=== PATIENT | female | born 1935 | race Caucasian/White ===

== ENCOUNTER → 2017-01-22 | Outpatient (CLI) | payer MEDICARE, BC ==
--- NOTE | 2017-01-22 17:31 | BD ---
EXAMINATION TYPE: MG DEXA axial skeleton. DATE OF EXAM: 01/22/2017 COMPARISON: NONE CLINICAL HISTORY: Postmenopausal female. Height: 5FT 3 IN Weight: 125 FRAX RISK QUESTIONS: Alcohol (3 or more units per day): NO Family History (Parent hip fracture): NO Glucocorticoids (More than 3mos): NO (Ex: prednisone, prednisolone, methylprednisolone, dexamethasone, and hydrocortisone). History of Fracture in Adulthood: NO Secondary Osteoporosis: 1. Type 1 Diabetes: NO 2. Hyperthyroidism: NO 3. Menopause before 45: YES 4. Malnutrition: NO 5. Chronic liver disease: NO Rheumatoid Arthritis: NO Current Tobacco Use: NO RISK FACTORS HISTORY OF: Active: YES Postmenopausal woman: TOTAL HYST AGE 38 Take estrogen and/or progesterone medications: TOOK PREMARIN FOR 30 YEARS MEDICATIONS: Prednisone or other steroids: How Long: Thyroid Medications: Which medication: How Long: Osteoporosis Medications: Which medication: How Long: Additional Medications: PRAVASTAIN, OMEPRAZOLE, ASPIRIN,BISOPROLOL-HYDROCHLORTHIAZIE Additional History: EXAM MEASUREMENTS: Bone mineral densitometry was performed using the Schedulicity System. Bone mineral density as measured about the Lumbar spine is: ----- L1-L4(G/cm2): 1.159 T Score Values are as follows: ----- L2: -1.6 ----- L3: 0.0 ----- L4: 1.6 ----- L1-L4: -0.2 UNSURE WHERE PREV WAS DONE AT Bone mineral density about the R hip (g/cm2): 0.856 Bone mineral density about the L hip (g/cm2): 0.865 T Score values are as follows: -----R Neck: -1.3 -----L Neck: -1.2 -----R Total: -0.6 -----L Total: -0.5 IMPRESSION: OSTEOPENIA. NOTE: T-SCORE=SD OF THE YOUNG ADULT MEAN.
--- NOTE | 2017-01-24 10:40 | MM ---
Reason for exam: screening (asymptomatic). Last mammogram was performed 13 years and 8 months ago. History: Patient is postmenopausal. Family history of breast cancer in 2 sisters. Physical Findings: A clinical breast exam by your physician is recommended on an annual basis and results should be correlated with mammographic findings. MG 3D Screening Mammo W/Cad Bilateral CC and MLO view(s) were taken. Prior study comparison: May 12, 2003, left breast diagnostic mammogram. The breast tissue is heterogeneously dense. This may lower the sensitivity of mammography. No suspicious abnormality. No significant changes when compared with prior studies. ASSESSMENT: Negative, BI-RAD 1 RECOMMENDATION: Routine screening mammogram of both breasts in 1 year.
== END | disposition home or self-care (01) ==
LOC: RADMAMWWP 14:54
PROVIDERS: ATTEND Family Medicine
DX: Z12.31 Encounter for screening mammogram for malignant neoplasm of breast (principal); M85.88 Other specified disorders of bone density and structure, other site; R26.9 Unspecified abnormalities of gait and mobility; I10 Essential (primary) hypertension; E78.5 Hyperlipidemia, unspecified; M85.9 Disorder of bone density and structure, unspecified; E55.9 Vitamin D deficiency, unspecified; E53.8 Deficiency of other specified B group vitamins; Z78.0 Asymptomatic menopausal state
CPT/HCPCS: 77080; 77063; G0202

== ENCOUNTER → 2017-01-23 | Outpatient (CLI) | payer MEDICARE, BC ==
[2017-01-23 11:27] LABS: ALT 27 U/L (9-52); AST 22 U/L (14-36); Alkaline Phosphatase 76 U/L (38-126); Anion Gap 9 mmol/L; Blood Urea Nitrogen 7 mg/dL (7-17); Calcium 10.1 mg/dL (8.4-10.2); Carbon Dioxide 28 mmol/L (22-30); Chloride 99 mmol/L (98-107); Cholesterol 231 mg/dL (<200); Glucose 100 mg/dL (74-99); HDL Cholesterol 106 mg/dL (40-60); Non-African American GFR(MDRD) >60 (>60 ml/min/1.73 sqM); Potassium 4.3 mmol/L (3.5-5.1); Sodium 136 mmol/L (137-145); Total Bilirubin 0.6 mg/dL (0.2-1.3)
[2017-01-23 11:47] LABS: Basophils % (A) 1 %; CH 31.2; CHCM 34.8; Eosinophils # (A) 0.1 k/uL (0-0.7); Eosinophils % (A) 1 %; HCT 41.2 % (34.0-46.0); HDW 2.62; HGB 13.7 gm/dL (11.4-16.0); Luc # (Auto) 0.13; Luc % (Auto) 3; Lymphocytes # (A) 1.6 k/uL (1.0-4.8); Lymphocytes % (A) 31 %; MCHC 33.2 g/dL (31.0-37.0); MCV 90.2 fL (80.0-100.0); Mean Platelet Volume 7.5; Monocytes # (A) 0.3 k/uL (0-1.0); Monocytes % (A) 5 %; Neutrophils # (A) 3.1 k/uL (1.3-7.7); Neutrophils % (A) 59 %; RBC 4.57 m/uL (3.80-5.40); RDW 13.7 % (11.5-15.5); WBC 5.2 k/uL (3.8-10.6); WBC (Perox) 5.46
[2017-01-23 12:10] LABS: Vitamin B12 388 pg/mL
[2017-01-23 12:11] LABS: Hemoglobin A1C 5.8 % (4.2-6.1)
== END | disposition home or self-care (01) ==
LOC: LABWHC1 09:40
PROVIDERS: ATTEND Family Medicine
DX: I10 Essential (primary) hypertension (principal); E78.5 Hyperlipidemia, unspecified; M85.9 Disorder of bone density and structure, unspecified; E55.9 Vitamin D deficiency, unspecified; R79.9 Abnormal finding of blood chemistry, unspecified; E53.8 Deficiency of other specified B group vitamins; R26.9 Unspecified abnormalities of gait and mobility
CPT/HCPCS: 36415; 80053; 80061; 82306; 82607; 83036; 84443; 85025

== ENCOUNTER → 2017-11-19 | Outpatient (CLI) | payer MEDICARE, BC ==
--- NOTE | 2017-11-19 11:44 | US ---
EXAMINATION TYPE: US thyroid st tissue head/neck DATE OF EXAM: 11/19/2017 COMPARISON: NONE CLINICAL HISTORY: E04.1 Thyroid Nodule. GLAND SIZE: Right Lobe: 4.2 x 1.7 x 1.4 cm Overall Parenchyma: homogenous Left Lobe: 3.4 x 1.4 x 1.5 cm Overall Parenchyma: homogeneous Isthmus Thickness: 0.1 cm NODULES RIGHT: # of nodules measured on right: 1 1. 1.4 x 1.1 x 1.1 cm anechoic mixed nodule at the mid pole with well-defined margins. This nodule is wider than tall and shows intranodular vascularity. No prior LEFT: # of nodules measured on left: 0 ISTHMUS: # of nodules measured in the isthmus: 0 Bilateral neck scanned, no evidence of lymphadenopathy. IMPRESSION: Complex cystic structure right lobe thyroid
== END | disposition home or self-care (01) ==
LOC: RADUSWWP 10:34
PROVIDERS: ATTEND Otolaryngology
DX: E04.1 Nontoxic single thyroid nodule (principal)
CPT/HCPCS: 76536

== ENCOUNTER 2018-05-27 05:32 | Emergency (ER) | payer MEDICARE, BC ==
--- NOTE | 2018-05-27 06:09 | ED ---
Chest Pain HPI - General Chief Complaint: Chest Pain Stated Complaint: Chest Pain Time Seen by Provider: 05/27/18 05:44 Source: EMS Mode of arrival: EMS Limitations: no limitations - History of Present Illness Initial Comments: Done is an 82-year-old female with a history of hypertension hyperlipidemia presents the emergency department this morning via EMS after she was woken from sleep with a sharp pain that radiated across her lower chest and epigastrium. Patient reports that the pain woke her from sleep, was sharp in nature not associated with any nausea, vomiting, diaphoresis or shortness of breath. The pain persisted, she went downstairs and discussed this with her daughter and son -in-law who gave her 3 baby aspirin and called EMS. By the time EMS arrived patient reports that her pain had resolved and she was feeling much better. She reports onset her pain was a 10 out of 10 in intensity lip at the time EMS arrived her pain had decreased to a 2 out of 10. Patient has no cardiac history she has no recent illness. Patient reports she was in her usual state of health throughout the day yesterday and was feeling well when she went to bed. All medications for hypertension has been compliant with her medications. Her medications are managed by her daughters due to the patient's occasional memory lapses. Patient's chest x-ray unremarkable, EKG nonischemic, labs unremarkable, troponin is negative Results were discussed with the patient who expresses relief, time is now 8 AM and patient actually has a follow-up appointment with her primary care physician Dr. Boykin later today. At this time patient would like to be discharged home. Return parameters were discussed, questions pertaining care were answered and patient was discharged home in stable condition. - Related Data Allergies Allergy/AdvReac Type Severity Reaction Status Date / Time No Known Allergies Allergy Verified 05/27/18 05:40 Review of Systems ROS Statement: Those systems with pertinent positive or pertinent negative responses have been documented in the HPI. ROS Other: All systems not noted in ROS Statement are negative. EKG Findings - EKG Comments: EKG Findings:: EKG obtained at 5:51 AM, rate is 74 rhythm is sinus tach normal axis, normal intervals, IL 174 QRS 84, QTC 428. There is no acute ST elevations or depressions is no evidence of acute ischemia or infarction. Past Medical History Past Medical History: Hyperlipidemia, Hypertension History of Any Multi-Drug Resistant Organisms: None Reported Past Surgical History: Hysterectomy, Tonsillectomy Past Psychological History: No Psychological Hx Reported Smoking Status: Former smoker Past Alcohol Use History: Occasional Past Drug Use History: None Reported General Exam - General Exam Comments Initial Comments: Physical Exam GENERAL: Very young-appearing 82-year-old female Patient is well-developed and well- nourished. Patient is nontoxic and well-hydrated and is in no distress. HENT: Normocephalic, Atraumatic. EYES: PERRL, EOMI PULMONARY: Unlabored respirations. No audible rales rhonchi or wheezing was noted. CARDIOVASCULAR: There is a regular rate and rhythm without any murmurs gallops or rubs. ABDOMEN: Soft and nontender with normal bowel sounds. SKIN: Skin is clear with no lesions or rashes and otherwise unremarkable. : Deferred NEUROLOGIC: Patient is alert and oriented x3. Moving all extremities spontaneously MUSCULOSKELETAL: Normal extremities with adequate strength and full range of motion. No lower extremity swelling or edema. No calf tenderness. PSYCHIATRIC: Normal psychiatric evaluation. Limitations: no limitations Limitations: no limitations Course Vital Signs 05/27/18 05/27/18 05:32 07:19 Pulse Rate 87 71 Respiratory 17 18 Rate Blood Pressure 184/103 180/80 O2 Sat by Pulse 96 98 Oximetry Chest Pain MDM - [facility] Patient was seen and evaluated, history is obtained from the patient and daughter bedside 82-year-old female with history of hypertension and hyperlipidemia, no cardiac history presenting with epigastric and chest pain woke her from sleep. Pain persisted for approximately under 1 hour. Pain with had no associated symptoms. Pain resolved prior to arrival. Patient has had a full dose aspirin prior to arrival. Patient is currently asymptomatic with no complaints. Disposition Clinical Impression: Atypical chest pain Disposition: HOME SELF-CARE Condition: Good Instructions: Chest Pain (ED) Is patient prescribed a controlled substance at d/c from ED?: No Referrals: Jina Boykin MD [Primary Care Provider] - As Soon As Possible
[2018-05-27 06:17] LABS: Basophils % (A) 0 %; Eosinophils # (A) 0.1 k/uL (0-0.7); Eosinophils % (A) 3 %; HCT 37.9 % (34.0-46.0); HGB 13.1 gm/dL (11.4-16.0); Lymphocytes # (A) 2.2 k/uL (1.0-4.8); Lymphocytes % (A) 41 %; MCH 29.8 pg (25.0-35.0); MCHC 34.5 g/dL (31.0-37.0); MCV 86.2 fL (80.0-100.0); Mean Platelet Volume 7.6; Monocytes # (A) 0.3 k/uL (0-1.0); Monocytes % (A) 6 %; Neutrophils # (A) 2.4 k/uL (1.3-7.7); Neutrophils % (A) 46 %; Platelet Count 195 k/uL (150-450); RDW 12.7 % (11.5-15.5); WBC 5.2 k/uL (3.8-10.6)
[2018-05-27 06:22] LABS: INR 0.9 (<1.2); Partial Thromboplastin Time 22.4 sec (22.0-30.0); Prothrombin Time 9.8 sec (9.0-12.0)
[2018-05-27 06:32] LABS: Albumin 4.1 g/dL (3.5-5.0); Total Bilirubin 0.6 mg/dL (0.2-1.3)
--- NOTE | 2018-05-27 06:43 | XR ---
EXAM: XR Chest, 2 Views CLINICAL HISTORY: ITS.REASON XR Reason: Chest Pain TECHNIQUE: Frontal and lateral views of the chest. COMPARISON: No relevant prior studies available. FINDINGS: Lungs: No consolidation. Pleural space: Unremarkable. No pneumothorax. Heart: Unremarkable. Mediastinum: Unremarkable. Bones/joints: No acute fracture. IMPRESSION: No acute cardiopulmonary process.
[2018-05-27 06:46] LABS: Creatine Kinase 39 U/L (30-135)
[2018-05-27 07:00] LABS: Creatine Kinase MB 0.7 ng/mL (0.0-2.4); Troponin I <0.012 ng/mL (0.000-0.034)
[2018-05-27 07:20] VITALS: BP 180/80; PULSE 71; RESP 18
[2018-05-27] MEDS ORDERED: amLODIPine 10 MG TAB PO STA (07:23)
== END 2018-05-27 07:56 | disposition home or self-care (01) ==
LOC: EC 05:32
DX: R07.89 Other chest pain (principal); I10 Essential (primary) hypertension; Z87.891 Personal history of nicotine dependence
CPT/HCPCS: 36415; 71046; 80053; 82550; 82553; 83735; 84484; 85025; 85610; 85730; 93005; 99285

== ENCOUNTER → 2019-01-13 | Outpatient (CLI) | payer MEDICARE, BC ==
--- NOTE | 2019-01-13 12:45 | US ---
EXAMINATION TYPE: US thyroid st tissue head/neck DATE OF EXAM: 01/13/2019 COMPARISON: US 11/19/17 CLINICAL HISTORY: 83-year-old female E04.1 thyroid nodule. TECHNIQUE: Multiple sonographic images of the thyroid gland were obtained. FINDINGS: GLAND SIZE: Right Lobe: 4.0 x 1.7 x 1.6 cm Overall Parenchyma: homogenous Left Lobe: 4.1 x 1.5 x 1.5 cm Overall Parenchyma: homogeneous Isthmus Thickness: 0.4 cm NODULES RIGHT: # of nodules measured on right: 1 1. 1.4 X 0.9 x 1.0 cm complex mixed nodule at the lower pole with irregular margins. This nodule i s wider than tall and shows intranodular vascularity. Prior size: 1.4 x 1.1 x 1.1 cm LEFT: # of nodules measured on left: 0 ISTHMUS: # of nodules measured in the isthmus: 0 Bilateral neck scanned, no evidence of lymphadenopathy. IMPRESSION: Similar complex solid cystic nodule measuring 1.4 x 1.0 cm at the right lower pole versus 1.4 x 1.1 c m, previously.
== END | disposition home or self-care (01) ==
LOC: RADUSWWP 07:31
PROVIDERS: ATTEND Otolaryngology
DX: E04.1 Nontoxic single thyroid nodule (principal)
CPT/HCPCS: 76536

== ENCOUNTER → 2019-12-02 | Outpatient (CLI) | payer MEDICARE, BC ==
--- NOTE | 2019-12-02 11:32 | US ---
EXAMINATION TYPE: US thyroid st tissue head/neck DATE OF EXAM: 12/02/2019 COMPARISON: US 2019 CLINICAL HISTORY: E04.1 THYROID NODULE. Thyroid nodule GLAND SIZE: Right Lobe: 4.0 x 1.5 x 1.7 cm Overall Parenchyma: homogenous Left Lobe: 3.3 x 1.4 x 1.4 cm Overall Parenchyma: homogeneous Isthmus Thickness: 0.2 cm NODULES RIGHT: # of nodules measured on right: 1 1. 1.2 X 1.1 x 0.9 cm complex mixed nodule at the lower pole with well-defined margins. This nodule is taller than wide and shows intranodular vascularity. Prior size: 1.4 x 0.9 x 1.0 cm LEFT: # of nodules measured on left: 0 ISTHMUS: # of nodules measured in the isthmus: 0 Bilateral neck scanned, no evidence of lymphadenopathy. IMPRESSION: 1. Stable Right lobe thyroid nodule
== END | disposition home or self-care (01) ==
LOC: RADUSWWP 10:31
PROVIDERS: ATTEND Otolaryngology
DX: E04.1 Nontoxic single thyroid nodule (principal)
CPT/HCPCS: 76536

== ENCOUNTER → 2020-12-22 | Outpatient (CLI) | payer MEDICARE, BC ==
[2020-12-22 16:04] LABS: Basophils # (A) 0.02 X 10*3/uL (0.00-0.10); Basophils % (A) 0.3 %; Eosinophils # (A) 0.09 X 10*3/uL (0.04-0.35); Eosinophils % (A) 1.5 %; HCT 42.3 % (37.2-46.3); HGB 13.8 g/dL (12.0-15.0); Lymphocytes # (A) 1.95 X 10*3/uL (0.90-5.00); Lymphocytes % (A) 33.2 %; MCH 29.9 pg (27.0-32.0); MCHC 32.6 g/dL (32.0-37.0); MCV 91.8 fL (80.0-97.0); Monocytes # (A) 0.48 X 10*3/uL (0.20-1.00); Monocytes % (A) 8.2 %; Neutrophils # (A) 3.31 X 10*3/uL (1.80-7.70); Neutrophils % (A) 56.5 %; Platelet Count 196 X 10*3/uL (140-440); RBC 4.61 X 10*6/uL (4.10-5.20); RDW 12.4 % (11.5-14.5); WBC 5.87 X 10*3/uL (4.50-10.00)
[2020-12-23 00:22] LABS: African American GFR (CKD) 66.6 (60.0-200.0); Albumin 4.7 g/dL (3.80-4.90); Albumin/Globulin Ratio 1.74 (1.60-3.17); Anion Gap 11.9 mmol/L (4.00-12.00); Calcium 10.2 mg/dL (8.7-10.3); Carbon Dioxide 23.1 mmol/L (21.6-31.8); Chol/HDL Ratio 2.52; Globulin 2.7 g/dL (1.6-3.3); Non-African American GFR(CKD) 57.5 (60.0-200.0); Potassium 4.4 mmol/L (3.5-5.5); Total Bilirubin 0.5 mg/dL (0.3-1.2); Total Protein 7.4 g/dL (6.2-8.2)
== END | disposition home or self-care (01) ==
LOC: LABWHC1 09:47
PROVIDERS: ATTEND Family Medicine
DX: Z00.00 Encounter for general adult medical examination without abnormal findings (principal); I10 Essential (primary) hypertension; E78.2 Mixed hyperlipidemia
CPT/HCPCS: 36415; 80053; 80061; 84443; 85025

== ENCOUNTER → 2021-11-29 | Outpatient (CLI) | payer MEDICARE, BC ==
--- NOTE | 2021-11-29 16:53 | US ---
EXAMINATION TYPE: US thyroid st tissue head/neck DATE OF EXAM: 11/29/2021 COMPARISON: US 12/02/2019 CLINICAL HISTORY: 85-year-old female E04.1 Thyroid Nodule. RT THYROID NODULE GLAND SIZE: Right Lobe: 4.7 x 1.8 x1.5cm Overall Parenchyma: homogenous Left Lobe: 3.9 x 1.5 x 1.6cm Overall Parenchyma: homogeneous Isthmus Thickness: 0.2cm NODULES RIGHT: # of nodules measured on right: 1 1. 1.3 x 0.9 x 0.9cm, lower , mixed cystic and solid, primarily solid hypoechoic nodule, which is wid er than tall, with smooth margins, with echogenic foci. Prior size: 1.2 x 1.1 x 0.9 cm LEFT: # of nodules measured on left: 0 ISTHMUS: # of nodules measured in the isthmus: 0 Bilateral neck scanned, no evidence of lymphadenopathy. IMPRESSION: A 1.3 cm TR5 nodule within the right lobe contains punctate calcifications but is relatively similar compared to 12/02/2019. Either continued follow-up versus FNA.
== END | disposition home or self-care (01) ==
LOC: RADUSWWP 13:46
PROVIDERS: ATTEND Otolaryngology
DX: E04.1 Nontoxic single thyroid nodule (principal)
CPT/HCPCS: 76536

== ENCOUNTER 2022-01-20 21:11 | Emergency (ER) | payer MEDICARE, BC ==
[2022-01-20 21:20] VITALS: BP 110/52; PULSE 75; RESP 22; TEMP 99.7
--- NOTE | 2022-01-20 21:49 | ED ---
Fever HPI - General Chief Complaint: Fever Stated Complaint: Fever; chills Time Seen by Provider: 01/20/22 21:28 Source: patient, family Mode of arrival: ambulatory Limitations: no limitations - History of Present Illness Initial Comments: This patient is an 86-year-old woman who presents with concern that she may be developing Covid infection. Over the past 2 days she has had cough, congestion, body aches, and fever. Patient denies chest pain, dyspnea, other symptoms. MD Complaint: fever Onset/Timin -: days(s) Temperature Source: oral, axillary Associated Symptoms: myalgias, nasal congestion, cough Treatments Prior to Arrival: Ibuprofen - Related Data Allergies Allergy/AdvReac Type Severity Reaction Status Date / Time No Known Allergies Allergy Verified 01/20/22 21:19 Review of Systems ROS Statement: Those systems with pertinent positive or pertinent negative responses have been documented in the HPI. ROS Other: All systems not noted in ROS Statement are negative. Constitutional: Reports: fever, chills ENT: Reports: congestion Respiratory: Reports: cough. Denies: dyspnea, wheezes Cardiovascular: Denies: chest pain, syncope Gastrointestinal: Denies: abdominal pain, vomiting, diarrhea Genitourinary: Denies: urgency, dysuria, frequency Musculoskeletal: Reports: myalgia. Denies: back pain Skin: Denies: rash Neurological: Denies: headache, weakness Past Medical History Past Medical History: Hyperlipidemia, Hypertension History of Any Multi-Drug Resistant Organisms: None Reported Past Surgical History: Hysterectomy, Tonsillectomy Past Psychological History: No Psychological Hx Reported Smoking Status: Never smoker Past Alcohol Use History: Occasional Past Drug Use History: None Reported General Exam Limitations: no limitations General appearance: alert, in no apparent distress Head exam: Present: atraumatic, normocephalic Eye exam: Present: normal appearance Neck exam: Present: normal inspection, full ROM Respiratory exam: Present: normal lung sounds bilaterally. Absent: respiratory distress, wheezes, rales, rhonchi, stridor Cardiovascular Exam: Present: regular rate, normal rhythm, normal heart sounds. Absent: systolic murmur, diastolic murmur, rubs, gallop GI/Abdominal exam: Present: soft. Absent: distended, tenderness, guarding, rebound, rigid, mass Extremities exam: Present: normal inspection, normal capillary refill. Absent: pedal edema, calf tenderness Back exam: Present: normal inspection. Absent: CVA tenderness (R), CVA tenderness (L) Neurological exam: Present: alert Skin exam: Present: warm, dry, intact, normal color. Absent: rash Course Vital Signs 01/20/22 21:12 Temperature 99.7 F H Pulse Rate 75 Respiratory 22 Rate Blood Pressure 110/52 O2 Sat by Pulse 96 Oximetry Medical Decision Making - Lab Data Lab Results 01/20/22 Range/Units 21:47 Coronavirus (PCR) Detected A (Not Detectd) Disposition Clinical Impression: COVID-19 Disposition: HOME SELF-CARE Condition: Good Instructions (If sedation given, give patient instructions): COVID-19 (Coronavirus Disease 2019) (ED) Is patient prescribed a controlled substance at d/c from ED?: No Referrals: Jasvir Laurent MD [Primary Care Provider] - 1-2 days Time of Disposition: 22:30
== END 2022-01-20 22:49 | disposition home or self-care (01) ==
LOC: EC 21:11
DX: U07.1 COVID-19 (principal); E78.5 Hyperlipidemia, unspecified; I10 Essential (primary) hypertension
CPT/HCPCS: 87635

== ENCOUNTER → 2022-05-02 | Outpatient (CLI) | payer MEDICARE, BC ==
--- NOTE | 2022-05-02 12:07 | FL ---
EXAMINATION TYPE: FL barium swallow w video DATE OF EXAM: 05/02/2022 CLINICAL HISTORY: 86-year-old female R1 3.10, unspecified Dysphagia. Patient with sensation of solids sticking. TECHNIQUE: Deglutition study is performed utilizing thin liquid barium, honey and nectar thick liqui d barium, barium thick applesauce, and barium coated cracker. Total fluoroscopy time: 1 minute 32 seconds. Total images: None. Real-time fluoroscopy support was provided to speech pathology. COMPARISON: None. FINDINGS: The oral and pharyngeal phases show satisfactory initiation and propagation with all modalities teste d. Normal mastication is seen with solid modalities tested. There is no evidence of penetration or aspiration with any modality tested. There is anterior endplate spondylosis mid to lower cervical spi ne that causes mild posterior impressions on to the hypopharynx and cervical esophagus. No obstructio n is apparent. There is mild vallecular residual with solids. This clears after a thin liquid wash. S cattered retained solids are noted throughout the thoracic esophagus. A liquid wash helps with cleara nce by resultant pooling in the distal esophagus. There is delayed gradual clearance from the esophag us. IMPRESSION: 1. No penetration or aspiration. Functional swallow. 2. There may be underlying esophageal dysmotility. Thin liquids pool in the distal esophagus and show delayed gradual clearance. Conventional double contrast esophagram can further evaluate. Please refer to speech therapist notes for further details if necessary.
== END | disposition home or self-care (01) ==
LOC: RADFLMAIN 10:46
PROVIDERS: ATTEND Otolaryngology
DX: K22.89 Other specified disease of esophagus (principal); R13.10 Dysphagia, unspecified
CPT/HCPCS: 74230

== ENCOUNTER → 2022-05-03 | Outpatient (CLI) | payer MEDICARE, BC ==
--- NOTE | 2022-05-03 11:30 | FL ---
EXAMINATION TYPE: FL barium swallow DATE OF EXAM: 05/03/2022 11:17 AM COMPARISON: 05/02/2022 CLINICAL INDICATION:Female, 86 years old with history of R13.10 DYSPHAGIA, UNSPECIFIED; TECHNIQUE: The procedure was explained and patient history elicited. All patient questions were ans wered prior to start of procedure. Multiple spot fluoroscopic images of the esophagus were obtained a fter the oral ingestion of effervescent crystals and liquid barium as the contrast agent. A machine feeder floorperson ra diograph of the chest was obtained and reviewed. Fluoroscopic time: 25 seconds Radiographs taken: 110 FINDINGS: The esophagus demonstrates tertiary contractions with delayed clearance of esophageal barium in the d istal esophagitis. Double contrast of the distal esophagus did not demonstrate abnormality. The esoph ageal mucosa is smooth without evidence of focal stricture, ulceration, or abnormal outpouching. No gastroesophageal reflux disease was identified. No hiatal hernia identified. IMPRESSION: Esophageal dysmotility. Thick and thin barium pools in the distal esophagus and shows similar delayed gradual clearance. No significant change from one day prior double contrast did not demonstrate unde rlying mass.
== END | disposition home or self-care (01) ==
LOC: RADUSWWP 10:27
PROVIDERS: ATTEND Otolaryngology
DX: K22.4 Dyskinesia of esophagus (principal)
CPT/HCPCS: 74220

== ENCOUNTER 2022-06-18 01:15 | Emergency (ER) | payer MEDICARE, BC ==
[2022-06-18 01:22] VITALS: BP 139/77; PULSE 84; RESP 15; TEMP 98.1
--- NOTE | 2022-06-18 02:13 | XR ---
EXAMINATION TYPE: XR chest 1V portable DATE OF EXAM: 06/18/2022 COMPARISON: 05/27/2018 HISTORY: Anxiety Short of breath TECHNIQUE: Single view FINDINGS: There is no heart failure nor confluent pneumonic infiltrate. Costophrenic angles are clear . There are no hilar masses. No pleural effusion. Bony thorax is intact. IMPRESSION: No active cardiopulmonary disease. No change.
--- NOTE | 2022-06-18 02:34 | ED ---
General Adult HPI - General Chief complaint: Anxiety Stated complaint: Chest Pain Time Seen by Provider: 06/18/22 01:22 Source: EMS Mode of arrival: EMS Limitations: no limitations - History of Present Illness Initial comments: This patient is an 86-year-old woman with history of previous anxiety episodes, brought by EMS to have evaluation after she had complained of being short of breath. The patient had reportedly been out with family walking around at an event. When she went to go to sleep tonight she had told him she was short of breath and the phone EMS. When I evaluated the patient, she is denying complaints. She denies fever or chills, cough, dyspnea, chest pain or other symptoms. -: hour(s) Severity scale (1-10): 0 Consistency: now resolved Improves with: none Worsens with: none Associated Symptoms: denies other symptoms Treatments Prior to Arrival: none - Related Data Allergies Allergy/AdvReac Type Severity Reaction Status Date / Time No Known Allergies Allergy Verified 06/18/22 01:16 Review of Systems ROS Statement: Those systems with pertinent positive or pertinent negative responses have been documented in the HPI. ROS Other: All systems not noted in ROS Statement are negative. Constitutional: Denies: fever, chills ENT: Denies: congestion Respiratory: Reports: dyspnea. Denies: cough, wheezes, hemoptysis Cardiovascular: Denies: chest pain, edema, syncope Gastrointestinal: Denies: abdominal pain, vomiting, diarrhea Genitourinary: Denies: dysuria Musculoskeletal: Denies: back pain Neurological: Denies: headache Past Medical History Past Medical History: Hyperlipidemia, Hypertension History of Any Multi-Drug Resistant Organisms: None Reported Past Surgical History: Hysterectomy, Tonsillectomy Past Psychological History: No Psychological Hx Reported Smoking Status: Never smoker Past Alcohol Use History: Occasional Past Drug Use History: None Reported General Exam Limitations: no limitations General appearance: alert, in no apparent distress Head exam: Present: atraumatic, normocephalic Eye exam: Present: normal appearance. Absent: scleral icterus, conjunctival injection Neck exam: Present: normal inspection, full ROM Respiratory exam: Present: normal lung sounds bilaterally. Absent: respiratory distress, wheezes, rales, rhonchi, stridor Cardiovascular Exam: Present: regular rate, normal rhythm, normal heart sounds. Absent: systolic murmur, diastolic murmur, rubs, gallop GI/Abdominal exam: Present: soft. Absent: distended, tenderness, guarding, rebound, mass, pulsatile mass Extremities exam: Present: normal inspection, normal capillary refill. Absent: pedal edema, calf tenderness Back exam: Present: normal inspection Neurological exam: Present: alert. Absent: motor sensory deficit Skin exam: Present: warm, dry, intact, normal color. Absent: rash Course Vital Signs 06/18/22 01:16 Temperature 98.1 F Pulse Rate 84 Respiratory 15 Rate Blood Pressure 139/77 O2 Sat by Pulse 99 Oximetry Medical Decision Making - Medical Decision Making The patient had a chest x-ray which I interpreted as showing no pulmonary infiltrate or congestion. No cardiomegaly. This patient is an 86-year-old woman brought to have evaluation of dyspnea. The patient states that all the symptoms had resolved by her arrival here. Her exam is benign. Family did subsequently arrive and state that this is not unusual behavior for her and that there appears to be in element of anxiety related to this. They would like to take her home and at this point she is stable for discharge. Was pt. sent in by a medical professional or institution? @ -No Did you speak to anyone other than the patient for history? @ -Family Did you review nursing and triage notes? @ -[agree Were old charts reviewed? @ -[No Differential Diagnosis? @ -Differential Dyspnea: Coronary syndrome, arrhythmia, tamponade, asthma, COPD, pulmonary embolism, pneumonia, pneumothorax, pulmonary effusion, anaphylaxis, diabetic ketoacidosis, pulmonary contusion, diaphragmatic rupture, anemia, neuromuscular, this is not meant to be an all-inclusive list. EKG interpreted by me (3pts min.)? @ -[None X-rays interpreted by me (1pt min.)? @ -See chart CT interpreted by me (1pt min.)? @ -[none U/S interpreted by me (1pt. min.)? @ -[none] What testing was considered but not performed? (CT, X-rays, U/S, labs)? Why? @ [None What meds were considered but not given? Why? @ -[none] Did you discuss the management of the patient with other professionals? @ -[No Did you reconcile home meds? @ -[no Was smoking cessation discussed for >3mins.? @ -[none] Was critical care preformed (if so, how long)? @ -[No Were there social determinants of health that impacted care today? How? (Homelessness, low income, unemployed, alcoholism, drug addiction, transportation, low edu. Level, literacy, decrease access to med. care, assisted, rehab)? @ -[No Was there de-escalation of care discussed even if they declined? (Discuss DNR or withdrawal of care, Hospice)? @ -[No What co-morbidities impacted this encounter? (DM, HTN, Smoking, COPD, CAD, Cancer, CVA, Hep., AIDS, mental health diagnosis, sleep apnea, morbid obesity)? @ -[None Was patient admitted / discharged? @ -[Discharged Undiagnosed new problem with uncertain prognosis? @ -[none] Drug Therapy requiring intensive monitoring for toxicity (Heparin, Nitro, Insulin, Cardizem)? @ -[none] Were any procedures done? @ -[none] Diagnosis/symptom? @ -[1. Acute anxiety Acute, or Chronic, or Acute on Chronic? @ -[Acute Uncomplicated (without systemic symptoms) or Complicated (systemic symptoms)? @ -[uncomplicated Side effects of treatment? @ -[none] Exacerbation, Progression, or Severe Exacerbation] @ -[no] Poses a threat to life or bodily function? @ -[No - Lab Data Lab Results 06/18/22 Range/Units 01:44 Influenza Type A (PCR) Not Detected (Not Detectd) Influenza Type B (PCR) Not Detected (Not Detectd) RSV (PCR) Not Detected (Not Detectd) SARS-CoV-2 (PCR) Not Detected (Not Detectd) Disposition Clinical Impression: Acute anxiety Disposition: HOME SELF-CARE Condition: Good Instructions (If sedation given, give patient instructions): Generalized Anxiety Disorder (ED) Is patient prescribed a controlled substance at d/c from ED?: No Referrals: Jasvir Laurent MD [Primary Care Provider] - 1-2 days
== END 2022-06-18 03:29 | disposition home or self-care (01) ==
LOC: EC 01:15
DX: F41.9 Anxiety disorder, unspecified (principal); I10 Essential (primary) hypertension; Z20.822 Contact with and (suspected) exposure to COVID-19
CPT/HCPCS: 71045; 87636; 99284

== ENCOUNTER 2023-01-24 15:49 | Emergency (ER) | payer MEDICARE, BC ==
[2023-01-24 16:02] VITALS: TEMP 98.1
[2023-01-24] MEDS ORDERED: ASPIRIN 81 MG PO STA (16:23)
--- NOTE | 2023-01-24 16:38 | ED ---
Chest Pain HPI - General Chief Complaint: Chest Pain Stated Complaint: Abd Pain Time Seen by Provider: 01/24/23 16:22 Source: patient, EMS Mode of arrival: EMS Limitations: altered mental status - History of Present Illness Initial Comments: This patient is an 87-year-old woman presenting to have evaluation of epigastric abdominal pain that had come on approximately an hour ago and then lasted for 30 minutes. She describes as a aching or bloating feeling. She is not no worsening or relieving factors. The symptoms did spontaneously resolve. She s tates she is back at baseline now. There was no associated diaphoresis, dyspnea, nausea or vomiting. MD Complaint: other (Epigastric pain) Onset/Timin -: hour(s) Onset: during rest Pain Location: epigastric Pain Radiation: none Severity: mild Quality: dull Consistency: now resolved Improves With: nothing Worsens With: nothing Treatments Prior to Arrival: none - Related Data Previous Rx's Medication Instructions Recorded Dicyclomine [Bentyl] 20 mg PO QID #15 tablet 01/24/23 Allergies Allergy/AdvReac Type Severity Reaction Status Date / Time No Known Allergies Allergy Verified 01/24/23 16:03 Review of Systems ROS Statement: Those systems with pertinent positive or pertinent negative responses have been documented in the HPI. ROS Other: All systems not noted in ROS Statement are negative. Constitutional: Denies: fever, chills, weakness Respiratory: Denies: cough, dyspnea Cardiovascular: Denies: chest pain, palpitations, edema Gastrointestinal: Reports: abdominal pain. Denies: nausea, vomiting, diarrhea, constipation Genitourinary: Denies: dysuria, hematuria Musculoskeletal: Denies: back pain Skin: Denies: rash Neurological: Denies: headache, weakness EKG Findings - EKG Results: EKG: interpreted by ERMD, sinus rhythm (With supraventricular premature complex, rate 75 bpm), normal axis, normal ST/T - PR, Pacemaker, Normal: Myocardial infarction: septal PR (old age or indeterminate) Past Medical History Past Medical History: Hyperlipidemia, Hypertension History of Any Multi-Drug Resistant Organisms: None Reported Past Surgical History: Hysterectomy, Tonsillectomy Past Psychological History: No Psychological Hx Reported Smoking Status: Former smoker Past Alcohol Use History: Occasional Past Drug Use History: None Reported General Exam Limitations: altered mental status General appearance: alert, in no apparent distress Head exam: Present: atraumatic, normocephalic Eye exam: Present: normal appearance. Absent: scleral icterus, conjunctival injection ENT exam: Present: normal oropharynx Respiratory exam: Present: normal lung sounds bilaterally. Absent: respiratory distress, wheezes, rales, rhonchi, stridor Cardiovascular Exam: Present: regular rate, normal rhythm, normal heart sounds. Absent: systolic murmur, diastolic murmur, rubs, gallop GI/Abdominal exam: Present: soft. Absent: distended, tenderness, guarding, rebound, rigid, mass, pulsatile mass, hernia Extremities exam: Present: normal inspection, normal capillary refill. Absent: pedal edema, calf tenderness Back exam: Present: normal inspection. Absent: CVA tenderness (R), CVA tende rness (L) Neurological exam: Present: alert Skin exam: Present: warm, dry, intact, normal color. Absent: rash Course Vital Signs 01/24/23 01/24/23 15:52 20:00 Temperature 98.1 F Pulse Rate 78 73 Respiratory 18 16 Rate Blood Pressure 140/75 135/66 O2 Sat by Pulse 100 96 Oximetry Chest Pain MDM - MDM Was pt. sent in by a medical professional or institution (, PA, HOSPITALITY HOUSEKEEPER, urgent care, hospital, or care home...) When possible be specific @ -[No] Did you speak to anyone other than the patient for history (EMS, parent, family, police, friend...)? What history was obtained from this source @ -[No] Did you review nursing and triage notes (agree or disagree)? Why? @ -[I reviewed and agree with nursing and triage notes] Were old charts reviewed (outside hosp., previous admission, EMS record, old EKG, old radiological studies, urgent care reports/EKG's, care home records)? Report findings @ -[No old charts were reviewed] Differential Diagnosis (chest pain, altered mental status, abdominal pain women, abdominal pain men, vaginal bleeding, weakness, fever, dyspnea, syncope, headache, dizziness, GI bleed, back pain, seizure, CVA, palpatations, mental health, musculoskeletal)? @ -[Differential Abdominal Pain Women: Appendicitis, Cholecystitis, diverticulosis, ischemic bowel, pancreatitis, hepatitis, UTI, gastroenteritis, AAA, incarcerated hernia, bowel obstruction, constipation, inflammatory bowel, hepatitis, peptic ulcer disease, splenic infarction, perforated viscus, acute coronary syndrome, kidney stone, placenta abruption, this is not meant to be an all-inclusive list EKG interpreted by me (3pts min.). @ -[As above] X-rays interpreted by me (1pt min.). @ -[None done] CT interpreted by me (1pt min.). @ -[None done] U/S interpreted by me (1pt. min.). @ -[None done] What testing was considered but not performed or refused? (CT, X-rays, U/S, labs)? Why? @ -[None] What meds were considered but not given or refused? Why? @ -[None] Did you discuss the management of the patient with other professionals (professionals i.e. , PA, HOSPITALITY HOUSEKEEPER, lab, RT, psych nurse, psychotherapist social worker, truss maker, teacher, helicopter officer, geriatric case manager)? Give summary @ -[No] Was smoking cessation discussed for >3mins.? @ -[No] Was critical care preformed (if so, how long)? @ -[No] Were there social determinants of health that impacted care today? How? (Homelessness, low income, unemployed, alcoholism, drug addiction, transportation, low edu. Level, literacy, decrease access to med. care, [facility], rehab)? @ -[No] Was there de-escalation of care discussed even if they declined (Discuss DNR or withdrawal of care, Hospice)? DNR status @ -[No] What co-morbidities impacted this encounter? (DM, HTN, Smoking, COPD, CAD, Cancer, CVA, ARF, Chemo, Hep., AIDS, mental health diagnosis, sleep apnea, morbid obesity)? @ -[None] Was patient admitted / discharged? Hospital course, mention meds given and route, prescriptions, significant lab abnormalities, going to OR and other pertinent info. @ -[This patient is an 87-year-old woman presenting after episode of epigastric discomfort. She was asymptomatic by the time she was seen. Her workup is unre markable. Given her symptoms, explaining that the most cautious course would be to admit her to have telemetry monitoring, serial cardiac enzymes, but the patient states that she feels well and would like to go home. She understands there is risk of missing cardiac etiology for do not have further workup, but she states she does not want stay for that. She does agree to follow-up. She'll return should any symptoms recur Undiagnosed new problem with uncertain prognosis? @ -[No] Drug Therapy requiring intensive monitoring for toxicity (Heparin, Nitro, Insulin, Cardizem)? @ -[No] Were any procedures done? @ -[No] Diagnosis/symptom? @ -[Acute epigastric abdominal pain, resolved Acute, or Chronic, or Acute on Chronic? @ -[ Uncomplicated (without systemic symptoms) or Complicated (systemic symptoms)? @ -[Uncomplicated Side effects of treatment? @ -[No] Exacerbation, Progression, or Severe Exacerbation? @ -[No] Poses a threat to life or bodily function? How? (Chest pain, [place], PR, pneumonia, PE, COPD, DKA, ARF, appy, cholecystitis, CVA, Diverticulitis, Homicidal, Worthy icidal, threat to staff... and all critical care pts) @ -[Undetermined at this point Disposition Clinical Impression: Abdominal pain Disposition: HOME SELF-CARE Condition: Good Instructions (If sedation given, give patient instructions): Abdominal Pain (ED) Prescriptions: Dicyclomine [Bentyl] 20 mg PO QID #15 tablet Is patient prescribed a controlled substance at d/c from ED?: No Referrals: None,Stated [Primary Care Provider] - 1-2 days
[2023-01-24 16:45] LABS: Basophils % (A) 0 %; Eosinophils # (A) 0.1 k/uL (0-0.7); Eosinophils % (A) 2 %; HCT 36.7 % (34.0-46.0); HGB 12.6 gm/dL (11.4-16.0); Lymphocytes # (A) 1.5 k/uL (1.0-4.8); Lymphocytes % (A) 21 %; MCH 29.8 pg (25.0-35.0); MCHC 34.3 g/dL (31.0-37.0); MCV 86.8 fL (80.0-100.0); Mean Platelet Volume 9.9; Monocytes # (A) 0.5 k/uL (0-1.0); Monocytes % (A) 7 %; Neutrophils # (A) 4.9 k/uL (1.3-7.7); Neutrophils % (A) 68 %; Platelet Count 142 k/uL (150-450); RBC 4.22 m/uL (3.80-5.40); RDW 12.4 % (11.5-15.5); WBC 7.2 k/uL (3.8-10.6)
--- NOTE | 2023-01-24 16:48 | XR ---
EXAMINATION TYPE: XR chest 2V DATE OF EXAM: 01/24/2023 COMPARISON: 06/18/2022 HISTORY: 87-year-old female chest pain TECHNIQUE: PA and lateral views FINDINGS: The cardiomediastinal silhouette, aorta, and pulmonary vasculature are within normal limits. Hyperinf lation. Otherwise, lungs and pleural spaces are clear. IMPRESSION: Correlate for COPD. No acute cardiopulmonary process.
[2023-01-24 17:05] LABS: ALT 22 U/L (4-34); AST 28 U/L (14-36); African American GFR (CKD) >90 (>60 ml/min/1.73 sqM); Albumin 4.1 g/dL (3.5-5.0); Alkaline Phosphatase 105 U/L (38-126); Anion Gap 9 mmol/L; Blood Urea Nitrogen 15 mg/dL (7-17); Calcium 10.1 mg/dL (8.4-10.2); Carbon Dioxide 22 mmol/L (22-30); Chloride 103 mmol/L (98-107); Glucose 114 mg/dL (74-99); Magnesium 1.9 mg/dL (1.6-2.3); Non-African American GFR(CKD) 80 (>60 ml/min/1.73 sqM); Potassium 3.9 mmol/L (3.5-5.1); Sodium 134 mmol/L (137-145); Total Bilirubin 0.5 mg/dL (0.2-1.3); Total Protein 6.8 g/dL (6.3-8.2)
[2023-01-24 17:12] LABS: NT-Pro-B-Type Natriuretic Pept 74 pg/mL
[2023-01-24 18:26] LABS: Appearance,Urine Clear (Clear); Bilirubin,Urine Negative (Negative); Blood,Urine Negative (Negative); Color,Urine Colorless; Glucose,Urine (UA) Negative (Negative); Ketones,Urine Negative (Negative); Leukocyte Esterase,Urine Trace (Negative); Nitrite,Urine Negative (Negative); Protein,Urine Negative (Negative); RBC,Urine <1 /hpf (0-5); Specific Gravity,Urine 1.006 (1.001-1.035); Squamous Epithelial Cell,Urine <1 /hpf (0-4); Urobilinogen,Urine <2.0 mg/dL (<2.0); WBC,Urine 1 /hpf (0-5)
[2023-01-24 18:33] LABS: INR 0.9 (<1.2); Prothrombin Time 9.8 sec (9.0-12.0)
[2023-01-24 18:39] LABS: Partial Thromboplastin Time 19.1 sec (22.0-30.0)
[2023-01-24 20:03] VITALS: BP 135/66; PULSE 73; RESP 16
== END 2023-01-24 20:40 | disposition home or self-care (01) ==
LOC: EC 15:49
DX: R10.13 Epigastric pain (principal); I10 Essential (primary) hypertension; Z87.891 Personal history of nicotine dependence
CPT/HCPCS: 36415; 71046; 80053; 81001; 83735; 83880; 84484; 85025; 85610; 85730; 93005; 99285

== ENCOUNTER 2023-07-05 15:01 | Emergency (ER) | payer MEDICARE, BC ==
[2023-07-05 15:08] VITALS: BP 153/65; PULSE 85; RESP 16; TEMP 98.2
[2023-07-05 15:50] LABS: Basophils % (A) 0 %; Eosinophils # (A) 0.1 k/uL (0-0.7); Eosinophils % (A) 1 %; HGB 13.8 gm/dL (11.4-16.0); Lymphocytes # (A) 3.1 k/uL (1.0-4.8); Lymphocytes % (A) 39 %; MCH 30.3 pg (25.0-35.0); MCHC 34.5 g/dL (31.0-37.0); MCV 87.8 fL (80.0-100.0); Mean Platelet Volume 9.5; Monocytes # (A) 0.4 k/uL (0-1.0); Monocytes % (A) 5 %; Neutrophils # (A) 4.3 k/uL (1.3-7.7); Neutrophils % (A) 53 %; Platelet Count 178 k/uL (150-450); RBC 4.56 m/uL (3.80-5.40); RDW 12.3 % (11.5-15.5); WBC 8.1 k/uL (3.8-10.6)
--- NOTE | 2023-07-05 15:59 | XR ---
EXAMINATION TYPE: XR chest 2V DATE OF EXAM: 07/05/2023 COMPARISON: 01/24/2023 TECHNIQUE: PA and lateral views submitted. HISTORY: Chest pain FINDINGS: The lungs are clear and there is no pneumothorax, pleural effusion, or focal pneumonia. Heart size normal and no overt failure. Osseous structures demonstrate hypertrophic and degenerative changes of the spine. Hyperinflation compatible with emphysema. Apical pleural thickening. Stable mild prominenc e of the pulmonary arteries which could be associated with pulmonary arterial hypertension. 6 mm nodu le overlying anterior margin first rib stable likely in the basis of superimposed structures. Tiny no dule not excluded. IMPRESSION: 1. No acute process. 2. COPD.
[2023-07-05 16:01] LABS: ALT 22 U/L (4-34); AST 33 U/L (14-36); African American GFR (CKD) 85 (>60 ml/min/1.73 sqM); Albumin 4.8 g/dL (3.5-5.0); Alkaline Phosphatase 114 U/L (38-126); Anion Gap 8 mmol/L; Blood Urea Nitrogen 11 mg/dL (7-17); Calcium 10.8 mg/dL (8.4-10.2); Carbon Dioxide 27 mmol/L (22-30); Chloride 101 mmol/L (98-107); Glucose 103 mg/dL (74-99); Magnesium 2.1 mg/dL (1.6-2.3); Non-African American GFR(CKD) 73 (>60 ml/min/1.73 sqM); Potassium 4.2 mmol/L (3.5-5.1); Sodium 136 mmol/L (137-145); Total Bilirubin 0.5 mg/dL (0.2-1.3); Total Protein 7.5 g/dL (6.3-8.2)
[2023-07-05 16:04] LABS: INR 0.9 (<1.2); Partial Thromboplastin Time 23.4 sec (22.0-30.0)
[2023-07-05 16:10] LABS: NT-Pro-B-Type Natriuretic Pept 59 pg/mL
== END 2023-07-05 16:47 | disposition left against medical advice (07) ==
LOC: EC 15:01
DX: R07.9 Chest pain, unspecified (principal); Z53.21 Procedure and treatment not carried out due to patient leaving prior to being seen by health care provider
CPT/HCPCS: 36415; 71046; 80053; 83735; 83880; 84484; 85025; 85610; 85730; 93005; 99499